=== PATIENT | female | born 1985 | race Caucasian/White ===

== ENCOUNTER 2019-01-11 15:16 | Outpatient (CLI) | payer OTHER ==
[~2019-01-11] VITALS: Ht 167.6 cm; Wt 87.8 kg
[2019-01-11 15:43] VITALS: BP 131/79
== END 2019-01-11 16:30 | disposition home or self-care (01) ==
LOC: M LDO 15:16
PROVIDERS: ATTEND Obstetrics & Gynecology
DX: O47.1 False labor at or after 37 completed weeks of gestation (principal); Z3A.39 39 weeks gestation of pregnancy
CPT/HCPCS: 59025; G0378; G0463

== ENCOUNTER 2019-01-15 13:25 | Inpatient (IN) | payer OTHER ==
[2019-01-15] VITALS (25 sets, daily range): BP systolic 113–166; BP diastolic 54–92
[~2019-01-15] VITALS: Ht 167.6 cm; Wt 87.2 kg
[2019-01-15] MEDS ORDERED: ZYRTTAB8 PO (13:45)
[2019-01-15] MEDS ORDERED: LACTATED RINGER'S 1000 ML IV STA (14:23)
--- NOTE | 2019-01-15 14:39 | HPEPDOC ---
Obstetrical History & Physical General Date of Admission 01/15/2019 History of Present Illness Tonia is a 33yo with SIUP at 40w0d presenting with regular, painful ctx since earlier in the day. They are progressively worsening. She has had a bit of bloody show. Feels good movement. No LOF. No f/c/n/v/CP/SOB. Chief Complaint: Contractions, term Information Provided By: Patient Care Care: Good Care Dating Final EDC: Jan 15, 2019 Final EDC by: LMP Antepartum Course Diagnos(e)s History of PTD with first at 35wk followed by term (received [place] this ), early subchorionic hematoma resolved, transfer in at 33wk, starting BMI 28.6 (overweight), GERD Height (inches): 66 Pre- weight (lbs.): 180 Admission Weight (lbs.): 193 Change in Weight (lbs.): 13 Past Medical History Past Obstetrical History : Past Obstetrical History: Multigravida (09/2010 at 35wk PPROM PPH? 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 Past Medical History Medical History seasonal allergies, GERD Surgical History: [place] teeth, Other (pilonidal cyst excision) Family History Significant Family History: No pertinent family hx Social History Marital Status: Family situation: Spouse/partner home Psychosocial History: No pertinent psych hx * Smoker: former Smoker (formerly 2cig/day, stopped March 2018) Alcohol: Denies Drugs: denies Imunizations Tdap status: current Influenza Status: current Allergies Uncoded Allergies: NKDA (Allergy, Mild, 01/11/19) STATES NKDA Medications Scheduled (Zyrtec-D Allergy/Congesti 5-120 mg) 1 Tab Tab, 1 TAB PO DAILY Physical Examination Physical Examination GENERAL: Alert and oriented times three. ABDOMEN: Gravid and non-tender to touch. FETUS: Is vertex (VTX) by sterile vaginal examination (SVE) EXTREMITIES: No edema Vital Signs/I&O Vital Signs Date Time Temp Pulse Resp B/P (MAP) Pulse Ox O2 Delivery O2 Flow Rate FiO2 01/15/19 13:46 97.6 97 18 121/84 (96) Pertinent Laboratoy Data Blood Type: A+ RBC Antibody Screen: Negative HIV: Negative Hepatitis B: Negative Hepatitis C: Unknown Rapid Plasma Reagin: Nonreactive Rubella: Immune Chlamydia/Gonorrhea: Negative Group B Streptococcus: Negative Glucose Tolerance Test: 108 Anatomy Ultrasound Ultrasound Date: Jul 27, 2018 Placenta Location: Posterior Normal Anatomy: Yes Placenta Previa: No Steroid Therapy Steroid Therapy: No Vaginal Examination Dilation: 6 cm Effacement: 70% Station: -2 Cervical Consistency: Soft Cervical Position: Anterior Presentation: Cephalic presentation Assessment Heart Rate (FHR): 140 Variability: Moderate Accelerations: Positive Decelerations: None Tocometer Contractions: Yes Frequency: regular, every 2-5 min. Duration: greater than 60 seconds Strength: palpated as moderate Assessment/Plan Assessment Tonia is a 33yo with SIUP at 40w0d admitted to L&D for active labor with regular, painful ctx having SCE 6/75/-2. Cat I FHRT. Vitals wnl. GBS negative. Cephalic by SCE. History of PTD with first at 35wk followed by term (received [place] this ), early subchorionic hematoma resolved, transfer in at 33wk, starting BMI 28.6 (overweight), GERD Plan Admit and orient. 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 Diet: clear liquids Group B Streptococcus (GBS) negative Labs and intravenous (IV) per unit protocol. Lactated Ringers (LR): Bolus 1000 mL, then at 125 mL/hr. Anticipate normal spontaneous delivery () Candidate for epidural as desired MD Sam Whelan Katrina D MD Jan 15, 2019 14:38
[2019-01-15 15:01] LABS: HEMATOCRIT 35.9 % (36.0-47.0); HEMOGLOBIN 11.7 g/dl (12.0-15.5); MEAN CORPUSCULAR HEMOGLOBIN 25.9 pg (27.0-33.0); MEAN CORPUSCULAR HGB CONC 32.6 g/dl (32.0-36.5); MEAN CORPUSCULAR VOLUME 79.6 fl (80.0-96.0); PLATELET COUNT, AUTOMATED 256 10^3/uL (150-450); RED BLOOD COUNT 4.51 10^6/uL (4.00-5.40); WHITE BLOOD COUNT 10.5 10^3/uL (4.0-10.0)
[2019-01-15] MEDS ORDERED: FENTANYL 2MCG/ML ROPIVACAINE 0.2% IN 0.9% NACL 100ML IVBAG As Ordered ONE (15:09)
[2019-01-15] MEDS: LR 1,000 ML IV SCH ×2 (15:38→22:23)
[2019-01-15] MEDS ORDERED: REFRIGERATOR IV KEYS XX PRN (17:00)
[2019-01-15] MEDS ORDERED: EPIDURAL/PCA KEYS XX PRN (17:00)
[2019-01-15] MEDS ORDERED: diphenhydrAMINE INJ 50MG/ML VIAL (J1200) IV PRN (17:00)
[2019-01-15] MEDS ORDERED: EPIDURAL COMMENT XX SCH (17:00)
[2019-01-15] MEDS ORDERED: LACTATED RINGER'S 1000 ML IV PRN (17:00)
[2019-01-15] MEDS ORDERED: ePHEDrine SULFATE 25 MG/5 ML(5MG/ML) SYRINGE IV PRN (17:00)
[2019-01-15] MEDS ORDERED: NALOXONE INJ 0.4 MG/1 ML VIAL (J2310) IV PRN (17:00)
[2019-01-15] MEDS ORDERED: ONDANSETRON 4MG/2ML VIAL (J2405) IV PRN (17:00)
[2019-01-15] MEDS: FENTANYL/ROPIVACAINE/NACL BAG 100 ML EPIDURAL SCH (17:00)
[2019-01-15] MEDS ORDERED: OXYTOCIN 30 UNITS IN 0.9% NaCl 500ML IV BAG (J2590) As Ordered ONE (18:17)
[2019-01-15] MEDS ORDERED: OXYTOCIN DRIP 30 UNITS in APPROPRIATE DILUENT 1 EA IV SCH (19:09)
[2019-01-15] MEDS ORDERED: DIBUCAINE 1% OINTMENT 30GM TOP PRN (19:15)
[2019-01-15] MEDS ORDERED: DOCUSATE SODIUM 100 MG CAP PO PRN (19:15)
[2019-01-15] MEDS ORDERED: MEASLES,MUMPS,RUBELLA VACCINE INJ (MMR-II) (90707) SC SCH (19:15)
[2019-01-15] MEDS ORDERED: RHOGAM 300 MCG (1500 IU) INJ (J2790) IM SCH (19:15)
[2019-01-15] MEDS ORDERED: ACETAMINOPHEN 500 MG TAB PO PRN (19:15)
--- NOTE | 2019-01-15 19:21 | DNPDOC ---
[facility] Delivery Note Delivery Note DATE OF DELIVERY: 15 January 2019 PREDELIVERY DIAGNOSIS: 40w0d gestation and labor. POST DELIVERY DIAGNOSIS: Delivered. PROCEDURE: Spontaneous vaginal delivery HEAD CORRECTION OFFICER: Dr. Angelina Vargas MD ANESTHESIA: epidural ESTIMATED BLOOD LOSS: 200 mL. FINDINGS: 7 pound 9 ounce (3420g) female , Score 8/9 DELIVERY SUMMARY: Tonia is a 33yo [id number] s/p uncomplicated at 40w0d at 18:24 on 01/15/19 after presenting in active labor. She received an epidural, had SROM with light mec stained fluid, progressed from 6cm to C/C/0 and within 3 sets of pushes, f etal head delivered OA, restituted ANDRE. Right anterior shoulder delivered followed by posterior shoulder and corpus. Infant had spontaneous cry, vigorous, placed on maternal abdomen where nose and mouth were suctioned. Apgars 8/9. After approx 2 minutes, cord was clamped x2 and cut by FOB. With uterine massage and traction on the cord, placenta delivered spontaneously and intact with 3 vessel centrally inserted cord. There were some trailing membranes, sweep of lower uterine segment revealed all membranes were removed. Pitocin IV given per protocol and bimanual massage performed, fundus then firmed to u-2cm and hemostasis was noted. Only 1 small superficial abrasion noted alex-clitoral, hemostatic so no repair necessary. EBL 200ml. Mom and infant were doing well when I left the room. MD Sam Whelan Katrina D MD Jan 15, 2019 19:21
[2019-01-15] MEDS: IBUPROFEN 800 MG TAB PO PRN (23:32)
[2019-01-16] MEDS: FENTANYL/ROPIVACAINE/NACL BAG 100 ML EPIDURAL SCH (02:38)
[2019-01-16 06:00] VITALS: BP 112/63
--- NOTE | 2019-01-16 07:55 | IPNPDOC ---
Progress Note Date of Service: Jan 16, 2019 Day#: 1 Progress Note PPD 1 SUBJECT: Tonia is a 33yo [id number] s/p uncomplicated on 01/15/19 after presenting in active labor, doing well day # 1. No lacerations. She has been ambulating, voiding spontaneously without issue and tolerating regular diet. without issue. Lochia is like a normal period. No f/c/n/v/CP/SOB. OBJECTIVE: VITAL SIGNS: Within normal limits, afebrile. Alert and oriented times three. Abdomen: Fundus firm at U-2. Soft, NTTP. Extremities: no pain with palpation of calves ASSESSMENT: Tonia is a 33yo [id number] s/p uncomplicated on 01/15/19 after presenting in active labor, doing well day # 1. No lacerations. Vitals within normal limits, afebrile, hemodynamically stable with no evidence of infection. PLAN: 1. routine care 2. Tylenol and Motrin for pain. 3. Encourage ambulation and breast feeding 4. regular diet 5. Likely discharge home tomorrow if meeting all milestones Dr. Angelina Vargas MD VS[facility] Vital Signs/I&O Vital Signs Date Time Temp Pulse Resp B/P (MAP) Pulse Ox O2 Delivery O2 Flow Rate FiO2 01/16/19 06:00 97.7 82 16 112/63 (79) 97 I&O- Last 24 Hours up to 6 AM 01/16/19 06:00 Intake Total 1843 ml Output Total 800 ml Balance 1043 ml Laboratory Data 24H LABS Laboratory Tests 2 01/15/19 14:40: Serology Scanned Report Hepatitis B Testing 01/15/19 14:42: Nucleated Red Blood Cells % (auto) 0.0 CBC/BMP Laboratory Tests 01/15/19 14:42 Red Blood Count 4.51, Mean Corpuscular Volume 79.6 L, Mean Corpuscular Hemoglobin 25.9 L, Mean Corpuscular Hemoglobin Concent 32.6, Red Cell Distribution Width 14.9 H Angelina Vargas MD Jan 16, 2019 07:55
[2019-01-16] MEDS: IBUPROFEN 800 MG TAB PO PRN ×2 (08:22→17:20)
[2019-01-16] MEDS: PRENATAL VITAMINS CHEWABLE TABLET PO SCH (08:22)
[2019-01-16 10:44] LABS: HEPATITIS B SURFACE ANTIGEN NEGATIVE (NEGATIVE)
[2019-01-16 18:00] VITALS: BP 122/70
[2019-01-17 06:02] VITALS: BP 110/69
--- NOTE | 2019-01-17 07:10 | DS.PDOC ---
Discharge Summary General Date of Admission Jan 15, 2019 at 14:34 Date of Discharge [id number] Discharge Summary ADMITTING DIAGNOSES: Active labor, SROM DISCHARGE DIAGNOSES: Same, HOSPITAL COURSE: Admitted and delivery uncomplicated, . course uncomplicated. DISCHARGE MEDICATIONS: Motrin, Lanolin DISCHARGE INSTRUCTIONS: Nothing in the vagina for 6 weeks. F/U in OBGYN clinic in 6-8 weeks. Sessions Vital Signs/I&Os Vital Signs Date Time Temp Pulse Resp B/P (MAP) Pulse Ox O2 Delivery O2 Flow Rate FiO2 01/17/19 06:02 98.7 81 17 110/69 (83) 01/16/19 06:00 97 Discharge Medications Scheduled (Zyrtec-D Allergy/Congesti 5-120 mg) 1 Tab Tab, 1 TAB PO DAILY, (Reported) Allergies Coded Allergies: No Known Allergies (Unverified , 01/15/19) SESSIONS,HIRA Duncan MD Jan 17, 2019 07:10
--- NOTE | 2019-01-17 07:13 | IPNPDOC ---
Text Note Date of Service The patient was seen on 01/17/19. NOTE PPD2 States feeling well, pain controlled with prescribed meds. Baby bonding and feeding well. No heavy VB. Lochia slowing. Ambulatory. Tolerating PO without issues. Voiding spont. No CP/LP/SOB. VSSAF NAD A&O LE no C/C/E Ut at U-2, firm a/p: Doing well. Cont routine care. D/C today. Sessions VS,Daniel, I+O VSDaniel, I+O Vital Signs Date Time Temp Pulse Resp B/P (MAP) Pulse Ox O2 Delivery O2 Flow Rate FiO2 01/17/19 06:02 98.7 81 17 110/69 (83) 01/16/19 06:00 97 SESSIONS,HIRA Duncan MD Jan 17, 2019 07:13
[2019-01-17] MEDS: IBUPROFEN 800 MG TAB PO PRN (07:14)
[2019-01-17] MEDS: PRENATAL VITAMINS CHEWABLE TABLET PO SCH (07:14)
[2019-01-17] MEDS ORDERED: PRENTAB9 PO (08:44)
[2019-01-17] MEDS ORDERED: IBUP-1114 PO (08:44)
[2019-01-17] MEDS ORDERED: MAPA500T2 PO (08:44)
== END 2019-01-17 11:45 | disposition home or self-care (01) | DRG 807 ==
LOC: M LDO 13:25 → M LDI 14:34 → M OBS 21:10
PROVIDERS: ADMIT Obstetrics & Gynecology; ATTEND Obstetrics & Gynecology
PROC: 10E0XZZ Delivery of Products of Conception, External Approach (ICD-10-PCS; principal; 2019-01-15)
DX: O48.0 Post-term pregnancy (principal); Z37.0 Single live birth; Z3A.40 40 weeks gestation of pregnancy